=== PATIENT | female | born 1945 | race Caucasian/White ===

== ENCOUNTER → 2016-06-18 | Outpatient (CLI) | payer MEDICARE, MEDICAID ==
[~2016-06-18] MED LIST: ADVAIR DIS14 PUFF/I1 INH; ALBUTEROL0.63 MG/3 INH; ALDACTONE25 MG PO; ASPIRIN81 MG PO; CARDURA4 MG PO; CEROVITE ADVANC1 TAB PO; CLARITIN10 MG PO; COLACE100 M1 PO; COREG25 MG PO; COZAAR50 MG PO; CYMBALTA60 MG PO; DEMADEX10 MG PO; DEMADEX20 MG PO; GLUCOPHAGE1000 MG PO; HALFPRIN81 MG PO; HUMULIN R100 UNIT/1 SUBCUT; IMDUR60 MG PO; KLOR-CON M1010 MEQ PO; LASIX80 MG PO; LEVAQUIN500 MG PO; LEVAQUIN750 MG IV; LEVOCETIRIZINE D5 MG PO; LOVENOX40 MG/0.4 SUBCUT; MILK OF MAGNESI30 ML PO; MIRALAX17 GM PO; MUCINEX600 M1 PO; NITROSTAT0.4 MG SL; NORCO 5-325 TA1 EACH PO; NOVOLOG MI100 UNIT/1 INJECT; NOVOLOG MI100 UNIT/2 SUBCUT; PREDNISONE10 MG PO; PREDNISONE20 MG PO; PREVALITE PACKET4 GM PO; PROAIR HFA8.5 GM INH; PROTONIX40 MG PO; RANEXA500 MG PO; REGLAN10 MG PO; REQUIP1 MG PO; ROBITUSSIN100 MG/5 M PO; SPIRIVA RESPIMAT4 GM INH; SPIRIVA18 MCG INH; THERA M PLUS T1 EACH PO; TYLENOL650 MG RECTAL; ZOCOR20 MG PO; ZOCOR40 MG PO; ZOSYN 3.3753.375 GM IV
== END | disposition short-term general hospital (02) ==
LOC: CLNEUR 12:45
DX: M54.16 Radiculopathy, lumbar region (principal); M54.5 Low back pain

== ENCOUNTER → 2016-07-10 | Outpatient (CLI) | payer MEDICARE, MEDICAID | END | disposition short-term general hospital (02) | LOC: CLPULM 05:33 | DX: J44.9 Chronic obstructive pulmonary disease, unspecified (principal); J32.9 Chronic sinusitis, unspecified; G47.61 Periodic limb movement disorder; I10 Essential (primary) hypertension; I25.10 Atherosclerotic heart disease of native coronary artery without angina pectoris; E11.9 Type 2 diabetes mellitus without complications; E66.9 Obesity, unspecified; K21.9 Gastro-esophageal reflux disease without esophagitis; R94.120 Abnormal auditory function study; Z87.01 Personal history of pneumonia (recurrent) ==

== ENCOUNTER → 2016-08-06 | Outpatient (CLI) | payer MEDICARE, MEDICAID | END | disposition short-term general hospital (02) | LOC: CLCARD 09:56 | DX: I11.0 Hypertensive heart disease with heart failure (principal); I50.42 Chronic combined systolic (congestive) and diastolic (congestive) heart failure; I25.5 Ischemic cardiomyopathy; I25.10 Atherosclerotic heart disease of native coronary artery without angina pectoris; R60.9 Edema, unspecified; E66.9 Obesity, unspecified; I44.7 Left bundle-branch block, unspecified; R94.31 Abnormal electrocardiogram [ECG] [EKG]; Z95.1 Presence of aortocoronary bypass graft ==

== ENCOUNTER → 2016-11-27 | Outpatient (CLI) | payer MEDICARE, MEDICAID ==
[~2016-11-27] MED LIST changes: -CEROVITE ADVANC1 TAB PO; -COLACE100 M1 PO; -CYMBALTA60 MG PO; -DEMADEX20 MG PO; -HALFPRIN81 MG PO; -MILK OF MAGNESI30 ML PO; -MIRALAX17 GM PO; -MUCINEX600 M1 PO; -NORCO 5-325 TA1 EACH PO; -NOVOLOG MI100 UNIT/1 INJECT; -SPIRIVA18 MCG INH
== END | disposition short-term general hospital (02) ==
LOC: CLUROL 09:57
DX: R32 Unspecified urinary incontinence (principal)